=== PATIENT | female | born 1965 | race Caucasian/White ===

== ENCOUNTER → 2018-02-09 16:47 | Outpatient (REF) | payer OTHER, SELFPAY ==
[2018-02-09 20:33] LABS: Abs Immature Grans 0.01 k/cumm (0.0-0.09); Absolute Basophil Count 0.04 k/cumm (0.0-0.2); Absolute Eosinophil Count 0.13 k/cumm (0.0-0.7); Absolute Monocyte Count 0.48 k/cumm (0.11-0.7); Absolute Neutrophil Count 5.36 k/cumm (1.2-6.7); Basophils % 0.5; Eosinophils % 1.6; HCT 39.8 % (36.0-46.0); HGB 13.4 g/dL (12.0-15.5); Immature Grans % 0.1; Lymphocytes % 24.9; Mean Corp. HGB Concentration 33.7 g/dL (32.0-36.0); Mean Corpuscular Hemoglobin 30.5 pg (27.0-33.0); Mean Corpuscular Volume 90.5 fL (80-95); Mean Platelet Volume 10.9 fL (8.0-11.0); Neutrophils % 66.9; Platelet Count 258 x1000/uL (130-400); RBC Distribution Width 13.2 % (11.7-14.6); White Blood Cell Count 8.02 k/cumm (4.4-10.8)
[2018-02-09 20:57] LABS: ALT 19 U/L (12-78); AST 15 U/L (15-37); Albumin 3.9 g/dL (3.4-5.0); Alkaline Phosphatase 70 U/L (46-116); Anion Gap 6.8 mmol/L (3-11); BUN 11 mg/dL (7-18); Bilirubin, Total 0.4 mg/dL (0.2-1.0); C-Reactive Protein 0.09 mg/dL (0.0-0.3); CO2 29.2 mmol/L (21.0-32.0); CREATININE 0.66 mg/dL (0.55-1.02); Chloride 104 mmol/L (98-107); FREE T4 1.01 ng/dL (0.76-1.46); Glucose 78 mg/dL (70-100); Potassium 3.8 mmol/L (3.5-5.1); Sodium 140 mmol/L (136-145); TSH 1.46 uIU/mL (0.358-3.74); Total Protein 6.8 g/dL (6.4-8.2)
[2018-02-09 21:13] LABS: Cholesterol 217 mg/dL (50-200); HDL Cholesterol 72 mg/dL (40-60); LDL CHOLESTEROL 134 mg/dL (<100); Triglyceride 63 mg/dL (30-150)
[2018-02-09 23:17] LABS: ESR 4 MM/HR (0-30)
[2018-02-11 16:44] LABS: T3, Total 115 ng/dl (97-169)
[2018-02-12 12:55] LABS: Lyme Ab w Rflx to Lyme Confirm Negative
[2018-02-13 14:06] LABS: Anaplasma phagocytophilum Negative (Negative); B. miyamotoi PCR Negative (Negative); Babesia divergens/MO-1 Negative (Negative); Babesia duncani Negative (Negative); Babesia microti Negative (Negative); Ehrlichia chaffeensis Negative (Negative); Ehrlichia ewingii/canis Negative (Negative); Ehrlichia muris eauclairensis Negative (Negative)
== END ==
LOC: NCHCN 16:47
PROVIDERS: PCP Family Medicine; Visit Provider Family Medicine
DX: Z00.00 Encounter for general adult medical examination without abnormal findings (principal); R53.83 Other fatigue; R10.11 Right upper quadrant pain; R20.2 Paresthesia of skin; R19.4 Change in bowel habit; M25.50 Pain in unspecified joint
CPT/HCPCS: 80053; 80061; 83721; 85652; 83036; 84439; 84443; 84480; 85025; 86140; 86618; 87798

== ENCOUNTER 2018-08-30 15:23 | Emergency (ER) | payer BC, SELFPAY ==
[2018-08-30 15:27] VITALS: BP 128/66; PULSE 78; RESP 20; TEMP 36.7; O2SAT 100
[2018-08-30 15:30] VITALS: RESP 20
--- NOTE | 2018-08-30 15:37 | ED.GENADUL_ITS ---
Discharge Plan Disposition Patient Disposition: HOME Condition: Stable Discharge Details Chief Complaint: GenMedical Clinical Impression: Lt facial numbness Primary Care Provider: Josey Bundy ED Provider: Garrison Williamson Home Meds and New Rx's Prescriptions: No Action No Known Home Meds RF: 0 Discharge Instructions Additional Instructions: I suspect you have trigeminal neuralgia based on your exam today. This is a nerve in the face that can cause numbness and pain when you have neuralgia follow up with your primary care provider within 1-2 weeks especially if sy mptoms continue If you have severe worsening of pain, worsening weakness in the extremities or vision changes return to the emergency department Medical Decision Making 52 yo female who denies chronic medical problems, no hx of smoking, comes in with chief complaint of facial numbness. She states she had a sharp pain 30 minutes ago to the left parietal area that resolved after a few seconds and noticed left face nubmness. She denies loc, chest pain, sob, vomit. She has no pain now. She has no focal neuro deficits, no cranial nerve deficits, normal speech. She has NIH of 0. She has no decreased sensation. The nubmness is on the entire left side of the face. Given lack of deficits I doubt cva. Could be early bells but I suspect trigeminal neuralgia. Given no headache now and was very brief do not feel w/u for entiteis such as cerebral aneruysm or sah indicated. Advised f/u with pcp and return if symptoms return or worsen Differential Diagnosis trigeminal neuralgia, bells HPI General Mode of arrival: ambulatory . Date/Time Provider Initiated Documentation: 08/30/18 15:27 . Limitations to Documentation: no limitations . Information obtained by: patient . History of Present Illness 52 year old F presents to the emergency department with the chief complaint of left facial numbness, and is localized to the face. Patient reports no radiation. Patient started experiencing this minute(s) (30) and it has been constant. No relieving factors improve symptom(s), No exacerbating factors reported . Patient did receive the following treatments prior to arrival, none Related Data Home Medications Medication Instructions Recorded Confirmed Unknown [No Known Home Meds] 09/27/17 08/30/18 Allergies Allergy/AdvReac Type Severity Reaction Status Date / Time guaifenesin [From Robitussin] Allergy Unverified 08/30/18 15:30 General Stated Complaint: GenMedical JIM: 3 Review of Systems Review of Systems All systems reviewed & are unremarkable except as noted in HPI and below Constitutional Denies chills and Denies fever(s) ENT Denies change in voice Cardiovascular Denies chest pain and Denies dyspnea Respiratory Denies cough and Denies dyspnea Gastrointestinal Denies abdominal pain, Denies nausea and Denies vomiting Genitourinary Denies dysuria Musculoskeletal Denies joint swelling Integumentary/Breasts Denies rash PFSH Social History Smoking/Tobacco Use Status: Never Alcohol Intake: current Alcohol Intake frequency: a few times a week Alcohol type: wine Substance use type: does not use Do you feel safe at home: Yes Do you feel safe in your relationship?: Yes Exam Const General: no acute distress Orientation: alert HENMT Head: normal to inspection Ears: external ears normal General nose exam: external nose normal Mouth: moist mucous membranes Eyes General: appearance normal, both eyes and all related structures Neck Neck: normal visual inspection Resp Effort & Inspection: normal respiratory effort and able to speak in complete sentences Cardio Rate: regular rate Skin General skin exam: no rashes or lesions noted Neuro General: alert and oriented x3 Extrem General: normal to inspection Psych Mental Status: mental status grossly normal Course Vital Signs Temperature 36.7 C 08/30/18 15:27 Pulse 78 08/30/18 15:27 Respiratory Rate 20 08/30/18 15:27 Blood Pressure 128/66 08/30/18 15:27 Pulse Oximetry 100 08/30/18 15:27 Temperature 36.7 C 08/30/18 15:27 Temperature Source Temporal Artery Scan 08/30/18 15:27 Pulse 78 08/30/18 15:27 Respiratory Rate 20 08/30/18 15:30 Respiratory Effort Non-Labored 08/30/18 15:30 Respiratory Depth Normal 08/30/18 15:30 Respiratory Pattern Normal 08/30/18 15:30 Blood Pressure 128/66 08/30/18 15:27 Blood Pressure Position Sitting 08/30/18 15:27 Pulse Oximetry 100 08/30/18 15:27 Oxygen Delivery Method Room Air 08/30/18 15:27 Oxygen Flow Rate 0 08/30/18 15:27 Pain Level 0 08/30/18 15:27
[2018-08-30 15:46] VITALS: BP 128/66; PULSE 78; RESP 20; TEMP 36.7; O2SAT 100
== END 2018-08-30 15:46 | disposition home or self-care (01) ==
PROVIDERS: Emergency Provider Emergency Medicine; PCP Family Medicine
DX: R51 Headache (principal); R20.0 Anesthesia of skin
CPT/HCPCS: 99282

== ENCOUNTER 2020-06-19 01:03 | Outpatient (CLI) | payer OTHER, SELFPAY ==
[2020-06-19 13:49] LABS: ESR 4 mm/hr (0-30)
[2020-06-19 13:52] LABS: ALT 22 U/L (14-59); AST 17 U/L (15-37); Albumin 3.9 g/dL (3.4-5.0); Alkaline Phosphatase 75 U/L (46-116); Anion Gap 6.8 mmol/L (3-11); BUN 10 mg/dL (7-18); Bilirubin, Total 0.6 mg/dL (0.2-1.0); C-Reactive Protein < 0.05 mg/dL (0.0-0.3); CO2 31.2 mmol/L (21.0-32.0); CREATININE 0.79 mg/dL (0.55-1.02); Calcium 9.2 mg/dL (8.5-10.1); Chloride 104 mmol/L (98-107); FREE T4 1.01 ng/dL (0.76-1.46); Glucose 81 mg/dL (74-106); Potassium 4.4 mmol/L (3.5-5.1); Sodium 142 mmol/L (136-145); TSH 1.55 uIU/mL (0.36-3.74); Total Protein 6.9 g/dL (6.4-8.2)
[2020-06-19 16:48] LABS: Calculated LDL 158 mg/dL (<100); Cholesterol 249 mg/dL (<200); HDL Cholesterol 72 mg/dL (40-60); Triglyceride 96 mg/dL (<150)
[2020-06-19 21:30] LABS: Rheumatoid Factor <8.6 IU/mL (<12.0)
[2020-06-22 11:32] LABS: Lyme Ab w Rflx to Lyme Confirm Negative (Negative)
[2020-06-22 14:33] LABS: ANA Interpretation Negative (Negative)
[2020-06-22 15:47] LABS: Anaplasma phagocytophilum Negative (Negative); B. miyamotoi PCR Negative (Negative); Babesia divergens/MO-1 Negative (Negative); Babesia duncani Negative (Negative); Babesia microti Negative (Negative); Ehrlichia chaffeensis Negative (Negative); Ehrlichia ewingii/canis Negative (Negative); Ehrlichia muris eauclairensis Negative (Negative)
== END 2020-06-19 01:23 ==
PROVIDERS: PCP Nurse Practitioner Family; Visit Provider Nurse Practitioner Family
DX: Z00.00 Encounter for general adult medical examination without abnormal findings (principal); E78.5 Hyperlipidemia, unspecified; M25.59 Pain in other specified joint; Z13.1 Encounter for screening for diabetes mellitus
CPT/HCPCS: 36415; 80053; 80061; 85652; 87798; 83036; 84439; 84443; 86038; 86140; 86431; 86618

== ENCOUNTER 2020-07-29 01:21 | Outpatient (CLI) | payer OTHER, SELFPAY ==
--- NOTE | 2020-07-29 07:45 | DI.US_ITS ---
EXAM: US THYROID CLINICAL HISTORY: Thyroid fullness on exam,E07.89. TECHNIQUE: Ultrasound thyroid performed using standard protocol. COMPARISON: No exams were available for comparison FINDINGS: Both thyroid lobes exhibit normal size and the isthmus is not thickened. There are 5 nodules in the right lobe and 2 small nodules in the left lobe. The left thyroid lobe measures 1 centimeter AP x 1.5 centimeters wide by 4.3 centimeters craniocaudal . Just above the midline there is a small correlate cyst measuring 2 x 1.8 x 2.5 millimeters. Above this level in the superior aspect is a 4 x 2 x 3.4 millimeter mixed solid-cystic nodule without calc ifications and exhibiting smooth margins. There are no focal findings in the isthmus. The right thyroid lobe measures 1.2 centimeters AP x 1.3 cm wide by 4.5 cm craniocaudal. Most superiorly there is a small 3 millimeter colloid cyst. Below this level and slightly medial is a well-defined anechoic 1.0 x 0.4 x 0.9 cm cyst with a mural and without internal vascularity, consistent with a probable benign colloid cyst. Lateral there is a well-defined wider than taller spongiform nodule measuring 1.3 x 0.5 x 0.8 cm whic h is relatively hypoechoic. It exhibits smooth margins and no internal echogenic foci. (TR 4) Below this level is a peripherally located 0.7 x 0.6 x 0.7 cm nodule which appears spongiform, devoid of internal echogenic foci, but slightly lobulated. (TR 4) More inferomedially in the right lobe there is a 0.8 x 0.4 x 0.8 centimeter solid nodule which is rel atively hypoechoic, exhibiting smooth borders and without internal echogenic foci therein (TR4) Most inferiorly in the right lobe there is a round solid 1.3 x 1.0 x 0.9 cm nodule which is isoechoic to the right lobe parenchyma, devoid of echogenic foci, but does exhibit extrathyroidal extension (T R 6) IMPRESSION: There are multiple nodules in the right thyroid lobe as described individually above. The largest an d most significant of these nodules is located inferiorly and exhibits extra thyroidal extension. TR 6 MODERATELY SUSPICIOUS. Main differential diagnosis would also include possible parathyroid adenoma. Appropriate follow-up r ecommended including possible FNA DATA REPOSITORY:
== END 2020-07-29 01:22 ==
LOC: DI 01:21
PROVIDERS: PCP Nurse Practitioner Family; Visit Provider Nurse Practitioner Family
DX: E07.89 Other specified disorders of thyroid (principal); E04.2 Nontoxic multinodular goiter
CPT/HCPCS: 76536

== ENCOUNTER 2020-08-07 21:41 | Outpatient (REF) | payer OTHER, SELFPAY ==
[2020-08-07 21:21] LABS: HGB 14.1 g/dL (11.2-15.7); MCH 30.2 pg (27.0-33.0); MCHC 31.3 % (32.0-36.0); MCV 96.4 fL (80-95); MPV 11.4 fL (8.0-11.0); Platelet Count 288 10^3/uL (130-400); RBC 4.67 10^6/uL (3.93-5.22); RDW 13.2 % (11.7-14.6); RDW-SD 46.3 fL; WBC 8.82 10^3/uL (4.4-10.8)
== END 2020-08-07 21:42 | disposition home or self-care (01) ==
LOC: NCHCN 21:41
PROVIDERS: PCP Nurse Practitioner Family; Visit Provider Nurse Practitioner Family
DX: R42 Dizziness and giddiness (principal)
CPT/HCPCS: 85027

== ENCOUNTER 2021-08-20 01:57 | Outpatient (CLI) | payer OTHER, SELFPAY ==
--- NOTE | 2021-08-20 07:00 | DI.MAMMO_ITS ---
Exam(s) MAMMO SCREENING EXAM: MAMMO SCREENING CLINICAL HISTORY: screening,z12.39. TECHNIQUE: Bilateral full field digital CC and MLO mammographic images were obtained with 3D tomosyn thesis and utilizing computer aided detection (CAD). COMPARISON: Prior outside mammograms were reviewed, the most recent being November 2019. FINDINGS: There has been no significant change in the appearance and distribution of the fibroglandular tissue. There are no new spiculated masses nor malignant appearing microcalcification groups. Three benign-appearing microcalcifications are noted posteriorly in the right breast There is no significant architectural distortion nor skin thickening-retraction. IMPRESSION: Benign findings. No radiographic evidence of malignancy. BI-RADS Category 2 - Benign Findings Breast Density - Category B - Scattered areas of fibroglandular density Breast density Category C or D implies that the patient has dense breast tissue. Dense breast tissue can make it harder to find cancer on a mammogram. Dense breast tissue is also associated with an incr eased risk of breast cancer. This information about the result of the mammogram report was provided to the patient to raise their awareness. Use this report when you speak with the patient about their risks for breast cancer, which includes their family history. At that time, you may recommend additional screening tests (Ultrasoun d or MRI) as these tests may add significant information. A negative radiographic report should not delay biopsy if a dominant or clinically suspicious mass is present. Up to ten percent of cancers are not identified on mammography. A negative report may reinforce clinical impression. Adenosis and dense breasts may obscure an underlying neoplasm. False positive reports average 6 to 10%. Patient will receive a letter notifying them of these results.
== END 2021-08-20 02:17 ==
PROVIDERS: PCP Nurse Practitioner Family; Visit Provider Nurse Practitioner Family
DX: Z12.31 Encounter for screening mammogram for malignant neoplasm of breast (principal)
CPT/HCPCS: 77063; 77067

== ENCOUNTER 2022-01-28 01:19 | Outpatient (CLI) | payer OTHER, SELFPAY ==
[2022-01-28 08:40] LABS: Calculated LDL 141 mg/dL (<100); Cholesterol 218 mg/dL (<200); HDL Cholesterol 58 mg/dL (40-60); TSH (W/Ref FT4) 2.33 uIU/mL (0.36-3.74); Triglyceride 97 mg/dL (<150)
== END 2022-01-28 01:20 | disposition home or self-care (01) ==
LOC: LBO 01:19
PROVIDERS: PCP Nurse Practitioner Family; Visit Provider Family Medicine
DX: E03.9 Hypothyroidism, unspecified (principal); E78.5 Hyperlipidemia, unspecified
CPT/HCPCS: 36415; 80061; 84443

== ENCOUNTER 2022-11-01 02:50 | Outpatient (CLI) | payer OTHER, SELFPAY ==
[2022-11-01 12:53] LABS: Anion Gap 8.8 mmol/L (3-11); BUN 11 mg/dL (7-18); CO2 28.2 mmol/L (21.0-32.0); CREATININE 0.8 mg/dL (0.55-1.02); Calcium 8.6 mg/dL (8.5-10.1); Chloride 102 mmol/L (98-107); Estimated GFR 86.96 (mL/min/1.73m2); Glucose 83 mg/dL (74-106); Sodium 139 mmol/L (136-145); TSH (W/Ref FT4) 1.85 uIU/mL (0.36-3.74); Vitamin B12 296 pg/mL (193-986)
== END 2022-11-01 02:51 | disposition home or self-care (01) ==
PROVIDERS: PCP Nurse Practitioner Family; Visit Provider Nurse Practitioner Family
DX: Z00.00 Encounter for general adult medical examination without abnormal findings (principal); R41.3 Other amnesia
CPT/HCPCS: 36415; 80048; 82607; 84443

== ENCOUNTER 2023-08-18 02:02 | Outpatient (CLI) | payer OTHER, SELFPAY ==
[2023-08-18 16:41] LABS: Anion Gap 7.9 mmol/L (3-11); BUN 12 mg/dL (7-18); CO2 29.1 mmol/L (21.0-32.0); CREATININE 0.8 mg/dL (0.55-1.02); Calcium 9.1 mg/dL (8.5-10.1); Calculated LDL 153 mg/dL (<100); Chloride 105 mmol/L (98-107); Cholesterol 256 mg/dL (<200); Estimated GFR 86.42 (mL/min/1.73m2); Glucose 108 mg/dL (74-106); HDL Cholesterol 68 mg/dL (40-60); Potassium 3.8 mmol/L (3.5-5.1); Sodium 142 mmol/L (136-145); Triglyceride 176 mg/dL (<150)
[2023-08-21 10:58] LABS: Hepatitis C Ab w Rflx HCV PCR Negative (Negative)
== END 2023-08-18 02:03 | disposition home or self-care (01) ==
LOC: LBO 02:02
PROVIDERS: PCP Nurse Practitioner Family; Visit Provider Nurse Practitioner Family
DX: Z00.00 Encounter for general adult medical examination without abnormal findings (principal)
CPT/HCPCS: 36415; 80048; 80061; 86803; 84443

== ENCOUNTER 2024-09-06 00:56 | Outpatient (CLI) | payer OTHER, SELFPAY ==
[2024-09-06 12:56] LABS: Anion Gap 9.3 mmol/L (3-11); BUN 13 mg/dL (7-18); CO2 28.7 mmol/L (21.0-32.0); CREATININE 0.9 mg/dL (0.55-1.02); Calcium 8.7 mg/dL (8.5-10.1); Calculated LDL 125 mg/dL (<100); Chloride 105 mmol/L (98-107); Cholesterol 212 mg/dL (<200); Estimated GFR 74.57 (mL/min/1.73m2); Glucose 83 mg/dL (74-106); HDL Cholesterol 63 mg/dL (>or=50); Potassium 4.2 mmol/L (3.5-5.1); Sodium 143 mmol/L (136-145); TSH (W/Ref FT4) 1.62 uIU/mL (0.36-3.74); Triglyceride 121 mg/dL (<150)
[2024-09-09 11:55] LABS: HBs Antibody, Quant <3.1 mIU/mL (See Note); Hep B Surface Ab Negative (See Note); Hepatitis B Core Antibody Negative (Negative); Hepatitis B Surface Antigen Negative (Negative)
== END 2024-09-06 00:57 | disposition home or self-care (01) ==
LOC: LBO 00:56
PROVIDERS: PCP Nurse Practitioner Family; Visit Provider Nurse Practitioner Family
DX: Z00.00 Encounter for general adult medical examination without abnormal findings (principal)
CPT/HCPCS: 36415; 80048; 80061; 86704; 86706; 87340; 84443

== ENCOUNTER 2024-10-01 02:07 | Outpatient (CLI) | payer OTHER, SELFPAY ==
--- NOTE | 2024-10-01 06:15 | DI.MAMMO_ITS ---
Exam(s) MAMMO SCREENING EXAM: MAMMO SCREENING CLINICAL HISTORY: screening,z12.39 TECHNIQUE: Bilateral full field digital CC and MLO mammographic images were obtained with 3D tomosyn thesis and utilizing computer aided detection (CAD). COMPARISON: Available for comparison. FINDINGS: Masses/Architectural Distortion: There is a new 1.1 cm nodule at the 12 o'clock position of the right breast almost 6 cm from the nipple. There are no areas of architectural distortion. Microcalcifications: No suspicious pleomorphic-type are seen. Skin Thickening/Nipple Retraction: None. IMPRESSION: 1. New 1.1 cm nodule in the right breast. 2. This should be further evaluated with a spot compression view. Right breast ultrasound is recomme nded at that time. BI-RADS Category 0 - Incomplete: Need additional imaging evaluation Breast Density - Category B - Scattered areas of fibroglandular density Breast density category C or D implies that the patient has dense breast tissue. Dense breast tissue is very common and is not abnormal but dense breast tissue can make it harder to find cancer on a ma mmogram. Also, dense breast tissue may increase their breast cancer risk. This information about the result of the mammogram report was provided to the patient to raise their awareness. Use this report when you speak with the patient about their risks for breast cancer, which includes their family hist ory. At that time, you may recommend for more screening tests (Ultrasound or MRI) as they might be us eful based on their risk. A negative radiographic report should not delay biopsy if a dominant or clinically suspicious mass is present. Up to ten percent of cancers are not identified on mammography. A negative report may reinforce clinical impression. Adenosis and dense breasts may obscure an underlying neoplasm. False positive reports average 6 to 10%. Patient will receive a letter notifying them of these results.
== END 2024-10-01 02:27 ==
LOC: DI 02:07
PROVIDERS: PCP Nurse Practitioner Family; Visit Provider Nurse Practitioner Family
DX: Z12.31 Encounter for screening mammogram for malignant neoplasm of breast (principal); R92.323 Mammographic fibroglandular density, bilateral breasts
CPT/HCPCS: 77063; 77067

== ENCOUNTER 2024-10-07 00:08 | Outpatient (CLI) | payer OTHER, SELFPAY ==
--- NOTE | 2024-10-07 | DI.US_ITS ---
Exam(s) MG MAMMO SCREEN CALL BACK UNI US BREAST RT LIMITED EXAM: MG MAMMO SCREEN CALL BACK UNI CLINICAL HISTORY: New 1.1 cm nodule 12:00 rt breast almost 6 cm from nipple. TECHNIQUE: Craniocaudal and mediolateral oblique spot compression digital Mammography views of the r ightbreast with Tomosynthesis and right breast ultrasound. COMPARISON: MG MA STEREOTACTIC BIOPSY from 06/24/2014 MG MA STEREO SPECIMEN ONLY from 06/24/2014 MG BILATERAL ROUTINE 2D/3D LENNOX SCREENING MAMMO from 06/17/2015 MG BILATERAL ROUTINE 2D/3D [place]X SCREENING MAMMO from 02/20/2017 MG MA BREAST SCREENING LENNOX BILATERAL from 11/29/2019 MG MG MAMMO SCREENING from 08/20/2021 MG MG MAMMO SCREENING from 10/01/2024 US US BREAST RT LIMITED from 10/07/2024 FINDINGS: Mammography/Tomosynthesis: Masses: None seen. Biopsy marker clip noted in inferior right breast. Architectural Distortion: None seen. Microcalcifictions: No suspicious pleomorphic-type are seen. Skin Thickening/Nipple Retraction: None. Right breast US: Echotexture: Normal appearance of the glandular tissue. Shadowing: No suspicious foci. Cyst: None. Solid lesions: None seen. Ductal dilation: None. IMPRESSION: 1. No evidence of malignancy is noted. 2. Six-month follow-up right mammogram recommended. 3. The findings were discussed with the patient on the date of the examination. BI-RADS Category 3 - 6 month - Probably Benign Finding: Recommend follow-up mammography in 6 months Breast Density - Category B - Scattered areas of fibroglandular density A negative radiographic report should not delay biopsy if a dominant or clinically suspicious mass is present. Up to ten percent of cancers are not identified on mammography. A negative report may reinforce clinical impression. Adenosis and dense breasts may obscure an underlying neoplasm. False positive reports average 6 to 10%. Patient will receive a letter notifying them of these results.
== END 2024-10-07 00:28 ==
LOC: DI 00:08
PROVIDERS: PCP Nurse Practitioner Family; Visit Provider Nurse Practitioner Family
DX: Z12.31 Encounter for screening mammogram for malignant neoplasm of breast (principal); R92.323 Mammographic fibroglandular density, bilateral breasts; D24.1 Benign neoplasm of right breast
CPT/HCPCS: 76642; 77063; 77067

== ENCOUNTER 2025-02-14 12:35 | Emergency (ER) | payer OTHER, SELFPAY ==
[2025-02-14] VITALS (32 sets, daily range): BP systolic 100–120; BP diastolic 51–71; PULSE 62–72; RESP 12–21; TEMP 36.6; O2SAT 94–100
--- NOTE | 2025-02-14 12:30 | RT.EKG_ITS ---
APPROVED REPORT Exam: Resting ECG Reason for Exam: Patient Location: E HR:69 bpm ECG Measurements Heart Rate 69 AXIS ND 141 P 70 QRSd 91 QRS 13 QT 391 T 5 QTc 421 Conclusion Sinus rhythm...normal P axis, V-rate 60- 99
[2025-02-14 13:28] LABS: Abs Immature Grans 0.01 10^3/uL (0.0-0.06); HCT 43.4 % (36.0-46.0); HGB 14.8 g/dL (11.2-15.7); Immature Grans % 0.2 %; MCH 30.5 pg (27.0-33.0); MCHC 34.1 % (32.0-36.0); MCV 89 fL (80-95); MPV 10.4 fL (8.0-11.0); Platelet Count 250 10^3/uL (130-400); RBC 4.86 10^6/uL (3.93-5.22); RDW 12.6 % (11.7-14.6); RDW-SD 41.2 fL; WBC 6.04 10^3/uL (4.4-10.8)
[2025-02-14 13:53] LABS: ALT 29 U/L (14-59); AST 22 U/L (15-37); Albumin 3.8 g/dL (3.4-5.0); Alkaline Phosphatase 67 U/L (46-116); Anion Gap 8.6 mmol/L (3-11); BUN 10 mg/dL (7-18); Bilirubin, Total 0.6 mg/dL (0.2-1.0); CO2 26.4 mmol/L (21.0-32.0); Calcium 8.6 mg/dL (8.5-10.1); Chloride 105 mmol/L (98-107); Estimated GFR 85.35 (mL/min/1.73m2); Glucose 91 mg/dL (74-106); Magnesium 2.0 mg/dL (1.8-2.4); NT-proBNP 62 pg/mL (<300); Potassium 4.2 mmol/L (3.5-5.1); Sodium 140 mmol/L (136-145); Total Protein 7.1 g/dL (6.4-8.2); Troponin I 4 ng/L (<or=51)
[2025-02-14 13:56] LABS: D-Dimer 188 ng/mlFEU (<500)
--- NOTE | 2025-02-14 14:22 | DI.RAD_ITS ---
Exam(s) XR CHEST 2V PA LATERAL EXAM: XR CHEST 2V PA LATERAL CLINICAL HISTORY: Chest pain TECHNIQUE: 2D digital imaging was performed of the chest. Two images were obtained. PA and lateral views were obtained. COMPARISON: No exams were available for comparison FINDINGS: MEDIASTINUM: Normal. HEART: Normal. PULMONARY VASCULATURE: Normal. LUNGS: Clear. PLEURAL SPACE: No pleural effusion or pneumothorax. BONE:Within normal limits for the patient's age. OTHER FINDINGS:Normal. IMPRESSION: No acute pulmonary findings. DATA REPOSITORY: RADIATION DOSE DELIVERED:
--- NOTE | 2025-02-14 15:06 | ED.GENADUL_ITS ---
Discharge Plan Disposition Patient Disposition: Home Condition: Stable Discharge Details Clinical Impression: Chest pain, Shortness of breath Primary Care Provider: Alyssa Morales ED Provider: Chino Wills Home Meds and New Rx's Prescriptions: Continued tretinoin 0.05 % cream 1 applic TP QHS estradiol 0.01 % (0.1 mg/gram) cream 1 g vaginal .Twice a week Patient Comments: INSERT 1 GRAM NIGHTLY FOR 1 WEEK THEN TWICE PER WEEK VAGINAL valacyclovir [Valtrex] 1 gram tablet 2,000 mg PO Q12H PRN (Reason: cold sores) Qty: 30 0RF Rx Instructions: Take 2 tabs twice a day for one day at the earliest sign of symptoms. Discharge Instructions Instructions: Chest Pain, Adult ED Additional Instructions: Please rest over the next few days. No exertional activities. Please drink plenty fluid to stay hydrated and allow for plenty of rest. Please take ibuprofen 600 mg by mouth every 6-8 hours as needed for pain for the next few days. Please follow-up with your primary care physician. You should be reevaluated early next week by your primary care physician. Should symptoms persist, additional outpatient diagnostic testing may be necessary. Return to the emergency department immediately for any worsening or new concerning symptoms. Referrals: Alyssa Morales NP [Primary Care Provider, Medicine] HPI General Mode of arrival: ambulatory . Date/Time Provider Initiated Documentation: 02/14/25 12:52 . Limitations to Documentation: no limitations . Information obtained by: patient . HPI Narrative: HISTORY OF PRESENT ILLNESS 59-year-old female with hyperlipidemia presenting with chest pain described as pressure for 3 days. Reports shortness of breath this morning, making it difficult to read out loud. Describes chest discomfort as mild pressure, intensifying with stair ascent. Concerned about heart attack. No history of hypertension, diabetes, heart disease, lung disease, or thyroid issues. No neck, shoulder, or back pain. Current chest discomfort differs from previous GERD pain, feeling like pressure rather than burning. Recalls wheezing a few days ago in her car. No recent fevers or coughs. Patient also concerned with long-term exposure to chemical fumes from work. Experiencing ankle edema at the end of the day for several years, worsening in warm weather. Swelling less severe than last year but persists with sedentary behavior. No recent immobility or surgery. Related Data Home Medications ?Medication ?Instructions ?Recorded ?Confirmed tretinoin 0.05 % topical cream 1 applic topical QHS 02/14/25 estradiol 0.01% (0.1 mg/gram) 1 g vaginal .Twice a wee k 07/30/21 02/14/25 vaginal cream valacyclovir 1 gram tablet 2,000 mg (2 x 1 gram) PO Q1 2H PRN 08/15/24 02/14/25 (Valtrex) cold sores #30 tabs Previous Rx's ?Medication ?Instructions ?Recorded valacyclovir 1 gram tablet 2,000 mg (2 x 1 gram) PO Q1 2H PRN 08/15/24 (Valtrex) cold sores #30 tabs Allergies Allergy/AdvReac Type Severity Reaction Status Date / Time meperidine (From Demerol) Allergy Intermediate unknown Verified 02/14/25 13:31 acetaminophen (From Tylenol) Allergy Unknown unknown Verified 02/14/25 13:31 guaifenesin (From Robitussin) Allergy unknown Verified 02/14/25 13:31 General Stated Complaint: Chest Pain JIM: 2 Exam Const General: cooperative and no acute distress HENMT Mouth: moist mucous membranes Eyes Conjunctivae: normal conjunctivae Sclera: normal sclerae Neck Neck: trachea midline Resp Auscultation: clear to auscultation bilaterally, no rales, no rhonchi and no wheezes Cardio Jugular venous pressure: no JVD Rate: regular rate and not tachycardic Rhythm: regular rhythm GI Palpation: soft, not firm, no guarding, no masses, not rigid and nontender Skin General skin exam: no rashes or lesions noted Neuro General: patient alert, patient awake, patient oriented x3 and tone normal Extrem General: no calf tenderness and no edema Psych Appearance: grossly normal Mental Status: mental status grossly normal Speech and Movement: speech and movement normal Course Vital Signs Vital signs: Vital Signs Temperature 36.6 C 02/14/25 12:41 Pulse 70 02/14/25 12:41 Respiratory Rate 16 02/14/25 12:41 Blood Pressure 105/68 02/14/25 12:41 Pulse Oximetry 96 02/14/25 12:41 Temperature 36.6 C 02/14/25 12:41 Temperature Source Oral 02/14/25 12:41 Pulse 63 02/14/25 14:01 Pulse 64 02/14/25 14:50 Respiratory Rate 13 02/14/25 14:50 Respiratory Effort Normal 02/14/25 13:33 Respiratory Depth Normal 02/14/25 13:33 Respiratory Pattern Normal 02/14/25 13:33 Blood Pressure 100/64 02/14/25 14:01 Blood Pressure Mean 75 02/14/25 14:01 Blood Pressure Position Sitting 02/14/25 12:41 Pulse Oximetry 97 02/14/25 14:50 Oxygen Delivery Method Room Air 02/14/25 12:41 Oxygen Flow Rate 0 02/14/25 12:41 Pain Level 4 02/14/25 13:33 Lab/Test Results Lab/Test Results: Laboratory Tests Range/Units 02/14/25 13:17 WBC (4.4-10.8) 10^3/uL 6.04 RBC (3.93-5.22) 10^6/uL 4.86 Hgb (11.2-15.7) g/dL 14.8 Hct (36.0-46.0) % 43.4 MCV (80-95) fL 89 MCH (27.0-33.0) pg 30.5 MCHC (32.0-36.0) % 34.1 RDW (11.7-14.6) % 12.6 Plt Count (130-400) 10^3/uL 250 MPV (8.0-11.0) fL 10.4 Immature Gran % % 0.2 Neutrophils % % 60.1 Lymphocytes % % 29.6 Monocytes % % 7.1 Eosinophils % % 2.0 Basophils % % 1.0 Nucleated RBC % (0.0-0.3) % 0.0 Absolute Neutrophils (1.2-6.7) 10^3/uL 3.63 Absolute Lymphocytes (1.2-3.4) 10^3/uL 1.79 Absolute Monocytes (0.1-0.8) 10^3/uL 0.43 Absolute Eosinophils (0.0-0.7) 10^3/uL 0.12 Absolute Basophils (0.0-0.2) 10^3/uL 0.06 D-Dimer (<500) ng/mlFEU 188 Sodium (136-145) mmol/L 140 Potassium (3.5-5.1) mmol/L 4.2 Chloride (98-107) mmol/L 105 Carbon Dioxide (21.0-32.0) mmol/L 26.4 Anion Gap (3-11) mmol/L 8.6 BUN (7-18) mg/dL 10 Creatinine (0.55-1.02) mg/dL 0.8 Est GFR (CKD-EPI 2020) (mL/min/1.73m2) 85.35 Glucose (74-106) mg/dL 91 Calcium (8.5-10.1) mg/dL 8.6 Magnesium (1.8-2.4) mg/dL 2.0 Total Bilirubin (0.2-1.0) mg/dL 0.6 AST (15-37) U/L 22 ALT (14-59) U/L 29 Alkaline Phosphatase (46-116) U/L 67 Troponin I (<or=51) ng/L 4 NT-Pro-B Natriuret Pep (<300) pg/mL 62 Total Protein (6.4-8.2) g/dL 7.1 Albumin (3.4-5.0) g/dL 3.8 Medical Decision Making ASSESSMENT AND PLAN Initial Assessment: 59-year-old female with hyperlipidemia presenting with chest pain described as pressure for 3 days. Differential Diagnosis: - ACS: Unlikely due to normal EKG and negative troponin x2. - Blood clot: Low risk factors. D-dimer negative. - Reflux: Possible esophagitis. - Musculoskeletal: Possible musculoskeletal pain. ED Course: EKG: Sinus rhythm 69 bpm, normal axis, no STEMI, nondiagnostic. Initial and delta troponin negative. Chest x-ray: No acute pulmonary findings. Mediastinum, heart, and pulmonary vasculature normal. POCUS heart: No pericardial effusion. Labs: D-dimer negative. - All results were discussed with the patient. Offered NSAID for potential pericarditis and patient declined. Patient reassessed and has remained stable. Final Assessment: Chest pain with unclear etiology. No emergent condition identified. Suspect musculoskeletal versus esophagitis. Consider pericarditis. Clinical Impression: - Musculoskeletal chest pain - Consider Esophagitis and pericarditis Disposition: Discharge: Home. Stable for discharge. Usual discharge instructions reviewed. Patient Education: Usual discharge instructions reviewed. This document was written with the assistance of ALBERTO Aldana. The patient consented to its use. Lab Data Lab results reviewed: Yes I reviewed the patient's lab results. Labs: Laboratory Tests Range/Units 02/14/25 02/14/25 02/14/25 13:17 14:40 15:51 WBC (4.4-10.8) 10^3/uL 6.04 RBC (3.93-5.22) 10^6/uL 4.86 Hgb (11.2-15.7) g/dL 14.8 Hct (36.0-46.0) % 43.4 MCV (80-95) fL 89 MCH (27.0-33.0) pg 30.5 MCHC (32.0-36.0) % 34.1 RDW (11.7-14.6) % 12.6 Plt Count (130-400) 10^3/uL 250 MPV (8.0-11.0) fL 10.4 Immature Gran % % 0.2 Neutrophils % % 60.1 Lymphocytes % % 29.6 Monocytes % % 7.1 Eosinophils % % 2.0 Basophils % % 1.0 Nucleated RBC % (0.0-0.3) % 0.0 Absolute Neutrophils (1.2-6.7) 10^3/uL 3.63 Absolute Lymphocytes (1.2-3.4) 10^3/uL 1.79 Absolute Monocytes (0.1-0.8) 10^3/uL 0.43 Absolute Eosinophils (0.0-0.7) 10^3/uL 0.12 Absolute Basophils (0.0-0.2) 10^3/uL 0.06 D-Dimer (<500) ng/mlFEU 188 Sodium (136-145) mmol/L 140 Potassium (3.5-5.1) mmol/L 4.2 Chloride (98-107) mmol/L 105 Carbon Dioxide (21.0-32.0) mmol/L 26.4 Anion Gap (3-11) mmol/L 8.6 BUN (7-18) mg/dL 10 Creatinine (0.55-1.02) mg/dL 0.8 Est GFR (CKD-EPI 2020) (mL/min/1.73m2) 85.35 Glucose (74-106) mg/dL 91 Calcium (8.5-10.1) mg/dL 8.6 Magnesium (1.8-2.4) mg/dL 2.0 Total Bilirubin (0.2-1.0) mg/dL 0.6 AST (15-37) U/L 22 ALT (14-59) U/L 29 Alkaline Phosphatase (46-116) U/L 67 Troponin I (<or=51) ng/L 4 Cancelled 4 NT-Pro-B Natriuret Pep (<300) pg/mL 62 Total Protein (6.4-8.2) g/dL 7.1 Albumin (3.4-5.0) g/dL 3.8 PFSH All Active Problems (Updated 02/14/25 @ 16:26 by Chino Wills MD) Shortness of breath (Acute) Chest pain (Acute) Multiple thyroid nodules (Chronic) Hyperlipidemia (Chronic) History of melanoma in situ (Chronic) Osteoarthritis (Chronic) Herpes simplex type 1 infection (Chronic) Hearing loss, bilateral (Chronic) TMJ (temporomandibular joint syndrome) (Chronic) Cervicalgia (Chronic) Medical History Trigeminal neuralgia of left side of face BCC (basal cell carcinoma of skin) Right infraorbital crease s/p Mohs Melanoma in situ (~2001) right abdomen Surgical History S/P Mohs surgery for basal cell carcinoma (~2015) Family History Mother , at 67 Alcohol abuse Depression Hypothyroidism due to Monika's thyroiditis Father Skin cancer Hyperlipidemia Sister Asthma Depression Hypothyroidism due to Monika's thyroiditis Sister Hypothyroidism due to Monika's thyroiditis Son No problems noted. Daughter No problems noted. Maternal Grandfather , 70's Alcohol abuse Depression Heart disease Maternal Grandmother , 70's Brain tumor Paternal Grandfather Skin cancer Paternal Grandmother No problems noted. Social History Smoking/Tobacco Use Status: Never Second Hand Exposure: Yes Smoking risk assessment performed?: Yes Alcohol Intake: current Alcohol Intake frequency: a few times a week Alcohol type: beer Drug use: Never Substance use type: does not use Caregiver/Support person: No Household members: spouse Housing: house Communication Needs: None Do you need help understanding health information?: Never Pets and animals: Yes Pets and animals: cat(s) and dog(s) Sexually active: Yes Do you think of yourself as: straight/heterosexual Current gender identity: female What is your relationship status?: How often do you talk on the phone with friends or family?: three or more times per week How often do you get together with friends or relatives?: once per week How often do you attend religion or anglican services?: decline to answer Do you belong to any clubs or organized social groups?: yes Panel score (0-1 are the most socially isolated patients): 3 What type of physical activity do you participate in: walking Duration: 15-30 minutes/day Frequency: daily Radhika/Jehovah'S Witness: None Special radhika needs: No Seatbelt use: always Helmet use: Yes Helmet use: sometimes Drive intox or ride w/intox port cdl a driver: No Do you feel safe at home: Yes Do you feel safe in your relationship?: Yes Female Reproductive History Menstrual Menopause type: natural History History 4 Para 2 Hx # Term Pregnancies Multiple births Hx # Pregnancies Ectopic pregnancies AB induced 2 Hx Number of Living Children 2 AB spontaneous POCUS Exam (ED) Limited Cardiac Exam DATE OF EXAM: 02/14/25 TIME OF EXAM: 16:14 PROVIDER THAT PERFORMED THE STUDY: Chino Wills IS THIS A REPEAT EXAM DURING THIS ENCOUNTER: no REASON FOR EXAM: Chest pain VISUALIZED STRUCTURES: Four Chambers VIEW OBTAINED: Parasternal long-axis PERTINENT FINDINGS/IMPRESSION: No LV dysfunction and No pericardial effusion Exam complete
[2025-02-14 16:14] LABS: Troponin I 4 ng/L (<or=51)
== END 2025-02-14 16:37 | disposition home or self-care (01) ==
PROVIDERS: Emergency Provider Student in an Organized Health Care Education/Training Program; PCP Nurse Practitioner Family
DX: R07.9 Chest pain, unspecified (principal); R06.02 Shortness of breath
CPT/HCPCS: 99283; 99284; 36415; 80053; 93005; 93308; 71046; 83735; 83880; 84484; 85025; 85379; 93010

== ENCOUNTER → 2025-05-15 00:38 | Outpatient (CLI) | payer OTHER, SELFPAY ==
--- NOTE | 2025-05-15 | DI.US_ITS ---
Exam(s) MG MAMMO DIAGNOSTIC UNI US BREAST RT COMPLETE EXAM: MG MAMMO DIAGNOSTIC UNI-RIGHT AND COMPLETE RIGHT BREAST ULTRASOUND CLINICAL HISTORY: f/u right breast abnormal mammo,r92.8,rt breast nodule. TECHNIQUE: Unilateral RIGHT BREAST CC AND MLO mammographic images were obtained with 3D tomosynthesis technique and utilizing computer aided detection (CAD). COMPLETE RIGHT BREAST ULTRASOUND was performed including all 4 quadrants as well as the right axilla. COMPARISON: Prior mammograms were reviewed, the most recent being September 2024. Ultrasound exam of September 2024 was also reviewed.. FINDINGS: DIAGNOSTIC RIGHT BREAST MAMMOGRAM: The asymmetric density at approximately 12 o'clock position is again noted, unchanged from September 2024. Proceeded with ultrasound COMPLETE RIGHT BREAST ULTRASOUND: At the 12 o'clock position there is a very subtle finding again noted which is orientated along the same plane as the fibroglandular tissue. This wider than taller possible subtle nodule measures 1.1 x 0.5 cm. Exhibits neutral through transmission. There are no other focal findings in all 4 quadrants of the right breast. Of the right axilla is negative for significant adenopathy. IMPRESSION: Finding at the 12 o'clock position on ultrasound as described above which most probably corresponds to the asymmetric nodular density seen on the mammogram (which is unchanged mammographically from September 2024 but was not evident on mammograms of 2021 and prior (there are no mammograms between 2021 and 2024. Appropriate follow-up, as discussed by myself with the patient today, is breast ultrasound exam. The patient was informed of the findings and follow-up recommendations by myself prior to leaving the department today. BI-RADS Category 0 - Incomplete: Need additional imaging evaluation, specifically MRI Breast Density - Category B - There are scattered areas of fibroglandular density. Breast density Category C or D implies that the patient has dense breast tissue. Dense breast tissue can make it harder to find cancer on a mammogram. Dense breast tissue is also associated with an increased risk of breast cancer. This information about the result of the mammogram report was provided to the patient to raise their awareness. Use this report when you speak with the patient about their risks for breast cancer, which includes their family history. At that time, you may recommend additional screening tests (Ultrasound or MRI) as these tests may add significant information. A negative radiographic report should not delay biopsy if a dominant or clinically suspicious mass is present. Up to ten percent of cancers are not identified on mammography. A negative report may reinforce clinical impression. Adenosis and dense breasts may obscure an underlying neoplasm. False positive reports average 6 to 10%. Patient will receive a letter notifying them of these results.
== END ==
LOC: DI 00:38
PROVIDERS: PCP Nurse Practitioner Family; Visit Provider Nurse Practitioner Family
DX: R92.8 Other abnormal and inconclusive findings on diagnostic imaging of breast (principal); Z12.31 Encounter for screening mammogram for malignant neoplasm of breast
CPT/HCPCS: 76642; 77061; 77065; G0279

== ENCOUNTER → 2025-05-28 00:21 | Outpatient (CLI) | payer OTHER, SELFPAY ==
--- NOTE | 2025-05-28 06:15 | DI.NM_ITS ---
Exam(s) NM HEPATOBILIARY CCK GRP EXAM: NM HEPATOBILIARY CCK GRP CLINICAL HISTORY: check gallbladder EF,ruq abd pain,r10.11. TECHNIQUE: Injected dose: 5 mCi Tc-99 mebrofenin Initial dynamic images: 60 minutes Post-Gallbladder fillin.02 mcg/kg CCK intravenously over a 30min infusion. Additional images: 70 minutes delay 30 minute dynamic during CCK administration. COMPARISON: US US ABDOMEN LIMITED from 04/28/2025 FINDINGS: Normal hepatic transit time. Prompt excretion into the gallbladder. Bowel visualized at 70 minute delayed images Gallbladder ejection fraction: Low gallbladder ejection fraction of 39 percent IMPRESSION: 1. Low gallbladder ejection fraction of 39 percent. SNM guidelines: Gallbladder visualization should be present by 3 hours. Delayed [id number] transit beyond 60 min raises the suspicion for partial common bile duct (CBD) obstruction. Gallbladder ejection fraction <35% has a good correlation with acalculous disease (i.e., chronic acalculous cholecystitis, cystic duct syndrome, sphincter of Oddi disease).
[2025-05-28] MEDS: Sincalide 5 MCG VIAL 1.2 MCG IJ (12:51)
[2025-05-28] MEDS: Water,Injection,Sterile 10 ML VIAL IJ (12:55)
== END ==
LOC: DI 00:21
PROVIDERS: PCP Nurse Practitioner Family; Visit Provider Nurse Practitioner Family
DX: R10.11 Right upper quadrant pain (principal)
CPT/HCPCS: 78227; J2805